=== PATIENT | female | born 1945 | race Two or more races ===

== ENCOUNTER 2019-06-28 08:23 | Outpatient (CLI) | payer OTHER ==
[~2019-06-28 08:23] MED LIST: CAPOTEN25 MG; CAPTOPRIL50 MG PO; CARVEDILOL12.5 MG PO; GLUCOPHAGE XR750 MG PO; HYDROCHLOROTH12.5 M1 PO; HYDROCHLOROTHIA25 MG; METFORMIN HCL1000 MG PO; PRILOSEC20 MG; VASOTEC10 MG PO
== END 2019-06-28 09:23 | disposition home or self-care (01) ==
LOC: SONOGRAMA 08:23
DX: R22.2 Localized swelling, mass and lump, trunk (principal)